=== PATIENT | male | born 1985 | race Caucasian/White ===

== ENCOUNTER 2016-08-03 05:48 | Emergency (ER) | payer BC ==
[~2016-08-03] VITALS: Ht 165.1 cm; Wt 87.9 kg
[~2016-08-03 05:48] MED LIST: FLEXERIL10 MG PO; INDOCIN25 MG PO; KEFLEX500 MG PO; LOMOTIL TABLET1 EACH PO; MOTRIN600 MG PO; MOTRIN800 MG PO; PEN-VEE K,VEET500 MG PO; PHENERGAN25 MG PR; PREDNISONE50 MG PO; PROMETHAZINE HC25 M1 PO; PROMETHAZINE HC25 M1 PR; Phenergan PO; SILVADENE20 GM TP; SUBOXONE 2 M1 TABLET SL; SUBOXONE 2 MG-1 EACH SL; SUBOXONE 4 MG-1 EACH; SUBOXONE 4 MG-1 EACH SL; SUBOXONE 8 M1 TABLET PO; SUBOXONE SL; SYMBOXIN PO; ZOFRAN ODT8 MG PO
[2016-08-03] MEDS ORDERED: ERYTHROMYC1 APPLICAT BOTH EYES (06:54)
[2016-08-03] MEDS ORDERED: AUGMENTIN875 MG PO (06:54)
[2016-08-03 07:01] VITALS: BP 146/89
== END 2016-08-03 07:03 | disposition home or self-care (01) ==
LOC: EME 05:48
DX: H01.002 Unspecified blepharitis right lower eyelid (principal); H10.9 Unspecified conjunctivitis; H00.032 Abscess of right lower eyelid; Z79.891 Long term (current) use of opiate analgesic
CPT/HCPCS: 99281; 99284

== ENCOUNTER 2017-01-11 05:31 | Emergency (ER) | payer BC ==
[~2017-01-11] VITALS: Ht 162.6 cm; Wt 83.7 kg
[~2017-01-11 05:31] MED LIST changes: +AUGMENTIN875 MG PO; +ERYTHROMYC1 APPLICAT BOTH EYES
[2017-01-11 06:01] LABS: HEMATOCRIT 44.9 % (38.0-50.0); MCH 28.7 PG (29.0-34.0); MCHC 33.6 G/DL (30.0-36.0); MCV 85.4 FL (86-99); MEAN PLAT.VOLUME 10.2 uM^3 (9.0-12.4); PLATELET COUNT 196 K/uL (156-360); RBC DIS.WIDTH-SD 40.4 % (39-53); RED BLOOD COUNT 5.26 M/uL (4.00-5.50); WHITE BLOOD COUNT 7.8 K/uL (4.1-10.2)
[2017-01-11 06:10] LABS: CHLORIDE 102 mEq/L (99-109); POTASSIUM 3.7 mEq/L (3.7-5.4); SODIUM 137 mEq/L (136-147)
[2017-01-11 06:12] LABS: GLUCOSE 112 mg/dL (70-99)
[2017-01-11 06:14] LABS: ANION GAP 11 MEQ/L (2-14); TOTAL BILIRUBIN 0.8 mg/dL (0.0-1.0)
[2017-01-11 06:16] LABS: ALKALINE PHOSPHATASE 62 IU/L (3-129); GFR ESTIMATE (CALCULATED) > 59 mL/min/
[2017-01-11 06:17] LABS: BILIRUBIN NEGATIVE; BLOOD NEGATIVE; COLOR YELLOW ((YELLOW)); GLUCOSE (STRIP) NEGATIVE; KETONES NEGATIVE; LEUKOCYTES NEGATIVE; NITRITE NEGATIVE; PROTEIN (STRIP) NEGATIVE; UROBILINOGEN 0.2 MG/DL (0.2-1.0)
[2017-01-11 06:17] LABS: UREA NITROGEN (BUN) 11 mg/dL (9-23)
[2017-01-11 06:18] LABS: ADD MIUA? NO; UCUL ADDED? NO
[2017-01-11 06:19] LABS: LIPASE 15 U/L (1.0-51.0)
[2017-01-11] MEDS ORDERED: SUBOXONE 8 MG-1 EAC2 SL (06:44)
[2017-01-11] MEDS ORDERED: IMODIUM MS REL1 EACH PO (08:06)
[2017-01-11] MEDS ORDERED: BENTYL20 MG PO (08:06)
[2017-01-11] MEDS ORDERED: ZOFRAN4 MG PO (08:06)
[2017-01-11 08:30] VITALS: BP 126/72
== END 2017-01-11 08:31 | disposition home or self-care (01) ==
LOC: EME 05:31
DX: K52.9 Noninfective gastroenteritis and colitis, unspecified (principal); R42 Dizziness and giddiness
CPT/HCPCS: 80053; 81003; 83690; 85027; 99281; 99283; J1885; J2405; J7030

== ENCOUNTER 2017-12-13 11:24 | Emergency (ER) | payer BC ==
[~2017-12-13] VITALS: Ht 160 cm; Wt 82.1 kg
[~2017-12-13 11:24] MED LIST changes: +BENTYL20 MG PO; +IMODIUM MS REL1 EACH PO; +SUBOXONE 8 MG-1 EAC2 SL; +ZOFRAN4 MG PO
[2017-12-13] MEDS ORDERED: BENTYL10 MG PO (12:01)
[2017-12-13] MEDS ORDERED: ZOFRAN ODT4 MG PO (12:01)
[2017-12-13 12:35] LABS: HEMATOCRIT 44.8 % (38.0-50.0); HEMOGLOBIN 15.5 G/DL (12.5-16.6); MCH 29.2 PG (29.0-34.0); MCHC 34.6 G/DL (30.0-36.0); MCV 84.5 FL (86-99); PLATELET COUNT 206 K/uL (156-360); RBC DIS.WIDTH-CV 12.6 % (11.8-14.6); RBC DIS.WIDTH-SD 38.7 % (39-53); WHITE BLOOD COUNT 12.6 K/uL (4.1-10.2)
[2017-12-13 12:45] LABS: ALBUMIN 4.9 g/dL (3.2-4.8); CHLORIDE 101 mEq/L (99-109); POTASSIUM 3.6 mEq/L (3.7-5.4); SODIUM 139 mEq/L (136-147)
[2017-12-13 12:47] LABS: GLUCOSE 149 mg/dL (70-99)
[2017-12-13 12:48] LABS: TOTAL PROTEIN 8.5 g/dL (6.4-8.3)
[2017-12-13 12:49] LABS: TOTAL BILIRUBIN 0.5 mg/dL (0.0-1.0)
[2017-12-13 12:51] LABS: ALKALINE PHOSPHATASE 69 IU/L (3-129); GFR ESTIMATE (CALCULATED) > 59 mL/min/ (58.99-99999)
[2017-12-13 12:52] LABS: UREA NITROGEN (BUN) 9 mg/dL (9-23)
[2017-12-13 12:53] LABS: AST (GOT) 13 IU/L (2-34)
[2017-12-13 12:54] LABS: ALT (GPT) 10 IU/L (3-49)
[2017-12-13 13:23] VITALS: BP 131/79
== END 2017-12-13 13:25 | disposition home or self-care (01) ==
LOC: EME 11:24
PROVIDERS: Nurse Practitioner Family
DX: K52.9 Noninfective gastroenteritis and colitis, unspecified (principal); T62.8X1A Toxic effect of other specified noxious substances eaten as food, accidental (unintentional), initial encounter
CPT/HCPCS: 80053; 85027; 99281; 99284; J2405; J7030